=== PATIENT | male | born 1945 | race Caucasian/White ===

== ENCOUNTER 2024-05-25 05:54 | Observation (INO) ==
--- NOTE | 2024-05-19 08:52 | Anesthesiology Consultation ---
Date of Service May 19, 2024 Assessment & Plan (1) Encounter for pre-operative examination: - Check BSG AM DOS - Infectious disease screening: Per assessment on 05/10/24: No known recent infectious disease contacts or current infectious disease symptoms. - Preop testing: No recent BMP received. Will order BMP for DOS. - Cardiology visit (04/14/24): "..Dilated cardiomyopathy, paroxysmal atrial fibrillation, and status post AV edson ablation with a biventricular pacemaker.. He is currently functional class II, euvolemic by examination.. Over 4 METS of a ctivity. He is on Eliquis which can be stopped 3 days prior to the procedure..His blood pressure remains quite soft.. In terms of your surgical procedure, you may proceed without any additional testing. Your perioperative risk is small in this particular procedure and less than 1% and does not require additional testing given your exercise capacity. The device does not need to be dealt with at all, and you may discontinue your blood thinner 3 days prior to the procedure. I would start holding your Demadex now as long as the fluid stays away to try to raise your blood pressure little bit." Chart Review Chart Review: Acceptable Risk for Surgery and Patient NOT seen in Pre Admission Testing History Surgery Operation Date: 05/25/24 07:30 Proposed Procedures p Insertion Intratheal Catheter and Medication Administration Pump System with Regular Subsequent Pump Refills for Duration of the Pump - Renémore Oliver MD, FIPP Height/Weight Height: 5 ft 10 in Weight: 88.904 kg Allergies Allergy/AdvReac Type Severity Reaction Status Date / Time lisinopril AdvReac Unknown Cough Verified 05/10/24 11:47 Medications Home Medications Medication Instructions Recorded Confirmed Last Taken allopurinol 300 mg tablet 300 mg PO QAM 01/07/24 05/10/24 03/08/24 08:30 apixaban 5 mg tablet (Eliquis) 5 mg PO BID 01/07/24 05/10/24 03/05/24 17:00 coenzyme [id number] E 100 mg-100 1 cap PO DAILY 01/07/24 05/10/24 03/08/24 17:00 unit capsule cyanocobalamin (vitamin B-12) 1,000 mcg PO UD 01/07/24 05/10/24 03/08/24 08:30 1,000 mcg capsule ezetimibe 10 mg tablet 10 mg PO HS 01/07/24 05/10/24 03/08/24 17:00 folic acid 1 mg tablet 2 mg PO DAILY 01/07/24 05/10/24 03/08/24 17:00 insulin aspart U-100 100 unit/mL 15 unit subcut TID 01/07/24 05/10/24 03/08/24 17:00 (3 mL) subcutaneous pen (Novolog FlexPen U-100 Insulin aspart) insulin glargine 100 unit/mL (3 27 unit subcut [facility] 01/07/24 05/10/24 03/08/24 08:30 mL) subcutaneous pen (Lantus Solostar U-100 Insulin) levocarnitine 330 mg tablet 330 mg PO BID 01/07/24 05/10/24 03/08/24 08:30 magnesium oxide 500 mg capsule 500 mg PO DAILY 01/07/24 05/10/24 03/08/24 08:30 metoprolol succinate 25 mg 12.5 mg PO [facility] 01/07/24 05/10/24 03/08/24 08:30 tablet,extended release 24 hr rosuvastatin 20 mg tablet 20 mg PO HS 01/07/24 05/10/24 03/08/24 17:00 thiamine HCl (vitamin B1) 50 mg 50 mg PO DAILY 01/07/24 05/10/24 03/08/24 08:30 tablet torsemide 10 mg tablet 5 mg PO HS 01/07/24 05/10/24 03/08/24 08:30 vitamin B comp and C no.3 15 mg-10 1 cap PO DAILY 01/07/24 05/10/24 03/08/24 17:00 mg-50 mg-5 mg-300 mg capsule (B Complex Plus Vitamin C) tamsulosin 0.4 mg capsule 0.4 mg PO DAILY #30 caps 02/03/24 05/10/24 03/08/24 08:30 Past Medical History Medical History Chronic pain syndrome Diabetes Dilated cardiomyopathy Non-ischemic cardiomyopathy Gout History of atrial fibrillation Paroxysmal History of CHF (congestive heart failure) HTN (hypertension) Hypercholesteremia LBBB (left bundle branch block) Lumbar post-laminectomy syndrome Presence of combination internal cardiac defibrillator (ICD) and pacemaker AICD, Implanted 2022, [employer] Follows with Dr. Claus Alexis/[facility] cardio Pulmonary emboli 25+ years ago Thoracic postlaminectomy syndrome Past Surgical History Surgical History History of hip replacement Right History of lumbar surgery x4 History of thoracic spinal fusion x2 Hx of bilateral cataract extraction Hx of cardiac catheterization 20+ years ago- no stents Hx of cervical spine surgery C3-C4 x2 Hx of colonoscopy Hx of hernia repair Hx of tonsillectomy Hx of total knee replacement Right Social History Smoking Status: Former smoker Do You Dip or Chew Tobacco: No Smoking End Date: quit 50+ yrs ago Hx Alcohol Use: No Hx Substance Use: No substance use type: does not use Testing Laboratory Results 05/13/24 WBC 7.7 H/H 14.0/42.1 PLATELETS 188 UA rare bacteria, negative nitrite/leuk est, small mucus (Sofia with surgeon's office made aware > she states she will flag Mundo Dill PAC to review) Electrocardiogram Date: 02/05/24 Ventricular paced rhythm at 70bpm. Chest X-Ray Date: 02/05/24 Limited portable exam. Left hemidiaphragm elevation. Pacemaker in place. The lung zones are clear. Stress Test Date: 03/08/21 Resting and stress perfusion are grossly normal. Negative test for ischemia. EF 41%. Cardiac Catheterization Date: 11/13/17 Left main coronary artery/Lcx/LAD normal. RCA is small, nondominant artery. Other Testing Carotid doppler Date: 04/14/24 No hemodynamically significant stenosis in either ICA. Antegrade flow within both vertebral arteries. ICD check Date: 04/21/24 [employer]. BiV paced.RAP 0%. RVP 99%. LVP 99%. Zero shocks. "Normal device function noted. Device data remained stable. No arrhythmic episodes were noted through device detection."
--- NOTE | 2024-05-24 15:50 | History & Physical Report ---
Date of Service May 24, 2024 Assessment & Plan (1) Lumbar post-laminectomy syndrome: (2) Thoracic postlaminectomy syndrome: (3) Chronic pain syndrome: (4) Chronic anticoagulation: Plan 1. Due to his chronic intractable thoracolumbar pain secondary to lumbar and thoracic postlaminectomy syndromes as well as his history of failure of multiple conservative therapies and the outcome of his successful intrathecal hydromorphone trial it has been recommended that he pursue permanent implantation of intrathecal pump and catheter delivery system to utilize hydromorphone. The potential risks versus benefits of the surgical procedure were discussed at length the patient is and they verbalized understanding. All of their questions were answered. The procedure will be carried out at [facility] on 05/25/2024. Patient will continue with tamsulosin 0.4 mg daily leading up to his surgical procedure and for approximately 1 month status post implantation to ensure his ability to urinate is appropriate with use of intrathecal hydromorphone. 2. Patient will return to the pain clinic for postop care at 1 week and 2 weeks. 3. Patient will likely undergo intrathecal pump refill moving forward in the [facility] History of Present Illness Chief Complaint: Chronic pain syndrome secondary to thoracic and lumbar postlaminectomy syndrome Primary Care Provider: MARIANELA Wells Mr. Andrews is a 78-year-old white male who has complaints of chronic thoracolumbar back pain and right thigh region pain. Patient with multiple comorbid medical conditions with pacemaker/ICD implantation, CHF, hypercholesterolemia, hypertension, gout and chronic anticoagulation therapy. Patient has history of multiple thoracolumbar spinal surgical procedures numbering 7 separate surgeries over the past 20+ years with most recent surgery occurring approximately 4 years ago in [place]. Patient also has history of prior cervical surgery with ACDF and posterior approach x 2. He is uncertain as to the levels previously fused in the thoracic and lumbar region. The patient reports minimal benefit from any of his recent surgical procedures. He reported some moderate relief from his original surgery only. The patient has chronic pain affecting the axial thoracolumbar spine extending from the infrascapular through the lumbosacral junction. He describes the pain as a constant deep aching sensation ranging between a 0-9/10. He has chronic left foot drop from his second surgical procedure. His symptoms exacerbated with prolonged standing, prolonged walking and improved with prolonged sitting with his legs up and lying in bed. He is able to ambulate for short distances with use of a four-wheel walker only. He has significant difficulty with balance patient does not ambulate without the assistance of a walker. Patient has significant limitations in his ADLs secondary to his pain and discomfort. Patient has previously failed multiple treatments including but not limited to physical therapy, acupuncture, multiple injection therapies, radiofrequency ablation procedures, tramadol, gabapentin, Lidoderm and Voltaren gel. The patient is unable to tolerate tramadol due to significant constipation therefore further opiate therapy has been deferred. Patient has history of pulmonary em bolism greater than 20 years ago and has been on chronic anticoagulation therapy over that same timeframe currently on warfarin but recently switched to Eliquis therapy approximately 1 year ago. He follows with cardiology and endocrinology. He did have pacemaker/defibrillator placed within the past 1 year. Patient denies bowel or bladder incontinence or saddle anesthesia. Patient did undergo a successful intrathecal opiate trial with hydromorphone which reportedly provided 80-90% reduction in his chronic thoracolumbar pain lasting for 24 from 36 hours during the trial. Patient was extremely pleased with the results he experienced during the trial and wished to proceed with permanent implantation. The patient did experience some difficulty urinating during the trial and had to be catheterized prior to discharge. He had no residual problems with urination upon discharge and discontinuation of the trial. Patient has no further constitutional complaints. Plan of care discussed with Dr. Karen Dean. Allergies Allergy/AdvReac Type Severity Reaction Status Date / Time lisinopril AdvReac Unknown Cough Verified 05/10/24 11:47 Home Medications Medication Instructions Recorded Confirmed Type allopurinol 300 mg tablet 300 mg PO QAM 01/07/24 05/10/24 History apixaban 5 mg tablet (Eliquis) 5 mg PO BID 01/07/24 05/10/24 History coenzyme [id number] E 100 mg-100 1 cap PO DAILY 01/07/24 05/10/24 History unit capsule cyanocobalamin (vitamin B-12) 1,000 mcg PO UD 01/07/24 05/10/24 History 1,000 mcg capsule ezetimibe 10 mg tablet 10 mg PO HS 01/07/24 05/10/24 History folic acid 1 mg tablet 2 mg PO DAILY 01/07/24 05/10/24 History insulin aspart U-100 100 unit/mL 15 unit subcut TID 01/07/24 05/10/24 History (3 mL) subcutaneous pen (Novolog FlexPen U-100 Insulin aspart) insulin glargine 100 unit/mL (3 27 unit subcut QAM 01/07/24 05/10/24 History mL) subcutaneous pen (Lantus Solostar U-100 Insulin) levocarnitine 330 mg tablet 330 mg PO BID 01/07/24 05/10/24 History magnesium oxide 500 mg capsule 500 mg PO DAILY 01/07/24 05/10/24 History metoprolol succinate 25 mg 12.5 mg PO QAM 01/07/24 05/10/24 History tablet,extended release 24 hr rosuvastatin 20 mg tablet 20 mg PO HS 01/07/24 05/10/24 History thiamine HCl (vitamin B1) 50 mg 50 mg PO DAILY 01/07/24 05/10/24 History tablet torsemide 10 mg tablet 5 mg PO HS 01/07/24 05/10/24 History vitamin B comp and C no.3 15 mg-10 1 cap PO DAILY 01/07/24 05/10/24 History mg-50 mg-5 mg-300 mg capsule (B Complex Plus Vitamin C) tamsulosin 0.4 mg capsule 0.4 mg PO DAILY #30 caps 02/03/24 05/10/24 Rx Past Med/Surg History Problem List (Updated 05/24/24 @ 15:48 by Mundo Dill PA-C) Chronic pain syndrome Thoracic postlaminectomy syndrome Lumbar post-laminectomy syndrome Encounter for pre-operative examination Medical History Chronic pain syndrome Diabetes Dilated cardiomyopathy Non-ischemic cardiomyopathy Gout History of atrial fibrillation Paroxysmal History of CHF (congestive heart failure) HTN (hypertension) Hypercholesteremia LBBB (left bundle branch block) Lumbar post-laminectomy syndrome Presence of combination internal cardiac defibrillator (ICD) and pacemaker AICD, Implanted 2022, [employer] Follows with Dr. Claus Alexis/[facility] cardio Pulmonary emboli 25+ years ago Thoracic postlaminectomy syndrome Surgical History History of hip replacement Right History of lumbar surgery x4 History of thoracic spinal fusion x2 Hx of bilateral cataract extraction Hx of cardiac catheterization 20+ years ago- no stents Hx of cervical spine surgery C3-C4 x2 Hx of colonoscopy Hx of hernia repair Hx of tonsillectomy Hx of total knee replacement Right Social History Smoking Status: Former smoker Tobacco Type: Cigarettes Smoking End Date: quit 50+ yrs ago; Second Hand Exposure: No; Do You Dip or Chew Tobacco: No; Tobacco Cessation Education Requested by Patient: No Hx Alcohol Use: No Hx Substance Use: No Preferred Language: [place] Communication Ability: Effective Visual Impairment: No Limitations Hearing Ability: Normal Crew Caller Required: No Beliefs That Will Affect Care: None marital status: Current Living Situation: Spouse current occupational status: retired current occupation: [employer] Other Information That Helps Us Care for You: No Feels Safe at Home: Yes Safety Concerns: Feels Safe At This Time Assistive Devices: Glasses and Walker Assistive Devices Comment: uses walker and rollator Review of Systems Review of Systems: Constitutional: Negative for fever, chills, sweats Eyes: Negative for eye pain, photophobia, drainage Ear, nose, mouth, throat: Negative for ear pain, nasal congestion, mouth lesions, change in voice Respiratory: Negative for wheezing, sputum production Cardiovascular: Negative for chest pain, palpitations, calf pain Gastrointestinal: Negative for abdominal pain, belching, bloating Genitourinary: Negative for dysuria, urinary incontinence, urinary urgency Musculoskeletal: Negative for deformities Integumentary: Negative for nail changes, skin yellowing, pruritus Neurological: Negative for abnormal speech, seizure type activity Physical Exam Physical Exam: General: Patient sitting quietly in exam room in no acute distress. Patient coming by his . Speech and thought process appropriate. Mood and affect appropriate. Cognition intact. Head: Normocephalic and atraumatic. ENT: No evidence of nasal or oral mucosal lesions. Mucous membranes are moist. Eyes: Pupils equal round reactive to light. Neck: Supple without adenopathy. Limited range of motion in all planes. Well- healed anterior and posterior surgical incisions status post cervical fusion. Patient is tender in the cervical paravertebral musculature bilaterally with spasm. Straightening of cervical lordosis was appreciated. Chest: Nontender to palpation of the costosternal junction. Cardiac: Regular rate and rhythm without murmur. Pacemaker implanted in the left anterior upper chest wall. Lungs: Clear to auscultation no wheeze or rhonchi. Abdomen: Soft and nondistended. No organomegaly. Bowel sounds active. Back/spine: Patient has well-healed midline incision extending from the mid thoracic through the lumbosacral junction. Some generalized tenderness in the thoracic and lumbar paravertebral musculature. Minimal spasm appreciated. Limited range of motion in all planes. Patient is multiple incisional sites which are well-healed right superior gluteal region along the iliac crest with some generalized tenderness to palpation. Lower extremities: SLR negative bilaterally. AFO brace present in left lower extremity. Foot drop appreciated on the left side with strength 0/5 with dorsiflexion and EHL testing. All the strength was 5/5 and equal bilaterally. Sensation was intact without focal deficit. He has no appreciable lower extremity edema. Neurologic: Cranial nerves grossly intact. Ambulatory function slowed and guarded with use of a 4 wheeled walker and unsteady/antalgic.
[2024-05-25] MEDS ORDERED: HYDROmorphone PAIN PUMP--Supplied by Pain Clinic IT SCH (06:00)
[2024-05-25] MEDS: LR 15ML/HR IV SCH (06:47)
[2024-05-25 06:52] LABS: BUN Creatinine Ratio 20.7 (10-20); Calcium 9.6 mg/dl (8.6-10.3); Creatinine Clr Calc Pharmacy 42.4 ml/min; Est GFR (African American) 45.7 ml/min; Est GFR (Non-African American) 39.5 ml/min; Potassium 5.3 mmol/L (3.5-5.1)
[2024-05-25] MEDS ORDERED: fentaNYL citrate PF 100 MCG/2 ML VIAL IV PRN (06:56)
[2024-05-25] MEDS ORDERED: ePHEDrine sulfate 50 MG/ML AMP IV PRN (06:56)
[2024-05-25] MEDS ORDERED: ONDANSETRON INJ 2 MG/ML 2 ML VIAL IV PRN ×2 (06:56→10:06)
[2024-05-25] MEDS ORDERED: ATROPINE SULFATE 0.1 MG/ML 10ML SYR IV PRN (06:56)
[2024-05-25] MEDS ORDERED: LIDOCAINE 2% 2 ML VIAL/AMP(20MG/ML) INFIL ONE (07:02)
[2024-05-25] MEDS ORDERED: DEXAMETHASONE SOD INJ 4 MG/ML VIAL ONE (07:02)
[2024-05-25] MEDS ORDERED: ONDANSETRON INJ 2 MG/ML 2 ML VIAL ONE ×2 (07:02→10:03)
[2024-05-25] MEDS ORDERED: PROPOFOL IV EMULSION 10 MG/ML 20 ML VIAL IV ONE (07:02)
[2024-05-25] MEDS ORDERED: fentaNYL citrate PF 100 MCG/2 ML VIAL ONE (07:02)
--- NOTE | 2024-05-25 07:35 | History & Physical Bridge Note ---
Date of Service May 25, 2024 History & Physical Bridge Note History & Physical Bridge Note Ricardo Andrews is a 78-year-old male with a history of chronic postprocedural pain due to lumbar postlaminectomy syndrome after undergoing extensive lumbar spine surgery in the past. He has been experiencing axial low back pain as well as bilateral lower to radicular pain with minimal activities required greater than such as ambulating more than 5 steps. His pain associated with both lower extremity numbness, dysesthesia, paresthesia and gait disturbance. He has undergone multiple conservative treatment modalities in the past including interventional therapies, nonopioid as well as opiate medications, physical therapy without success improving pain relief so that he can perform minimal ADLs. He is also not a surgical candidate for any additional surgery. He underwent intrathecal hydromorphone trial successfully with significant pain relief and was able to demonstrate increased functional activity during the trial. Patient is scheduled today for implantation of intrathecal medication delivery system. Patient's past medical history, surgical history, medication and allergy list has been reviewed and no changes noted since his last history and physical examination performed. Review of systems is negative for any cardiac, pulmonary, GI, , endocrine or acute neurological complaints other than what is listed in the HPI section. Physical exam: GENERAL: Patient appears his stated age. Speech and cognition is intact. Mood and affect is appropriate. Sensorium is clear. He appears to be in pain when he tries to sit up or roll on his side on the stretcher today. HEAD: Normocephalic; atraumatic. EYES: Pupils are round and equal. Act. Mucous membranes moist and pink. No oral lesions noted. ENT: No external ear discharge or lesions. No rhinorrhea or epistaxis. No mucosal lesions. NECK: Full ROM. Trachea is midline. Carotids without bruit. CARDIAC: Regular rate and rhythm. No murmur or gallops noted. CHEST: Regular chest respiration and excursion. Lungs are clear to a uscultation. ABDOMEN: No organomegaly appreciated. Bowel sounds are hypoactive. EXTREMITIES: 3+ strength of bilateral lower extremities. Symmetrical sensation both lower extremities. BACK: Loss of lumbar lordosis. Significant diminished range of motion of the lumbar spine. Long surgical scar from the thoracic to lumbar spine. NEURO: Clear intact sensorium. SKIN: No lesions, erythema, or rashes noted. ASSESSMENT: Chronic postprocedural pain due to lumbar postlaminectomy syndrome. RECOMMENDATIONS: Patient is offered implantation of intrathecal medication delivery system with infusion of hydromorphone. History reviewed, examination performed, pertinent laboratory and imaging studies reviewed. No contraindications noted to proceeding with the proposed procedure. Potential risks including infection, bleeding, hematoma, nerve injury, persistent back pain, injury to the spinal cord, dural puncture with persistent cerebrospinal fluid leak, post dural puncture headache which may re quire additional interventional procedures to treat, urinary retention were discussed with the patient in detail. Alternative treatments were also discussed. Patient's questions were answered and gives informed consent to proceed with the proposed procedure.
[2024-05-25] MEDS: ceFAZolin 2000MG 2,000 MG/15 ML SYR IV SCH (08:06)
[2024-05-25] MEDS ORDERED: ROCURONIUM BROMIDE 10 MG/ML 5 ML VIAL IV ONE (08:41)
[2024-05-25] MEDS ORDERED: SUGAMMADEX SODIUM 200 MG/2 ML VIAL IV ONE (08:41)
[2024-05-25] MEDS ORDERED: METOPROLOL TARTRATE 1 MG/ML VIAL IV ONE (08:49)
[2024-05-25] MEDS: LIDOCAINE 2%/EPINEPHRINE 1:100,000 20ML INFIL ONE (09:06)
[2024-05-25] MEDS: IOPAMIDOL INJ 61% 15 ML VIAL INJ ONE (09:50)
[2024-05-25] MEDS ORDERED: ACETAMINOPHEN 500 MG TAB PO PRN (10:06)
[2024-05-25] MEDS ORDERED: NALOXONE HCL 0.4 MG/1 ML VIAL/CARP IV PRN (10:06)
[2024-05-25] MEDS ORDERED: MAGNESIUM CITRATE 296 ML/BTL PO PRN (10:06)
[2024-05-25] MEDS ORDERED: diphenhydrAMINE Capsule 25 MG CAP PO PRN (10:06)
[2024-05-25] MEDS ORDERED: HYDROCODONE/ACETAMOPHEN 5/325MG TAB PO PRN (10:06)
[2024-05-25] MEDS ORDERED: EMPAGLIFLOZIN 25 MG TAB PO SCH (10:15)
--- NOTE | 2024-05-25 13:07 | Anesthesiology Progress Note ---
Date of Service May 25, 2024 Anesthesia Post Procedure Vital Signs Vital Signs: Temp Pulse Resp BP Pulse Ox O2 Del Method O2 Flow Rate 05/25/24 12:45 70 19 137/60 97 Room Air 05/25/24 12:15 70 18 108/55 L 93 Room Air 05/25/24 12:00 70 15 110/57 L 92 Room Air 05/25/24 11:45 70 17 118/55 L 96 Room Air 05/25/24 11:30 70 14 112/61 95 Room Air 05/25/24 11:20 70 15 117/56 L 96 Room Air 05/25/24 11:10 70 16 121/54 L 95 Room Air 05/25/24 11:00 36.3 C L 70 15 97/60 L 95 Room Air 05/25/24 10:50 70 14 105/58 L 95 Room Air 05/25/24 10:40 70 16 116/58 L 96 Room Air 05/25/24 10:30 70 16 123/57 L 96 Room Air 05/25/24 10:21 36.2 C L 70 21 131/53 L 99 Nasal Cannula 4 05/25/24 06:26 36.4 C L 70 20 112/58 L 99 Room Air Pain Intensity Back: Pain Intensity: 2 Transfer of Care Handoff Completed per policy Notes Mental Status: alert / awake / arousable and participated in evaluation Patient Amnestic to Procedure: Yes Nausea / Vomiting: adequately controlled Pain: adequately controlled Airway Patency, RR, SpO2: stable & adequate BP & HR: stable & adequate Hydration State: stable & adequate Anesthetic Complications: no major complications apparent and Pt Satisfied with anesthetic care
--- NOTE | 2024-05-25 13:21 | XRay Report ---
XR thoracolumbar spine 2V CLINICAL HISTORY: s/p intrathecal pump; check catheter tip placement TECHNIQUE: 2 views of the thoracolumbar spine were obtained. Comparison: Comparison is made to thoracic spine radiographs 01/07/2024 and fluoroscopy 05/25/2024 FINDINGS: A pain pump is seen in the right hemipelvis. The catheter is partially visualized however the tip is not well seen due to the posterior fixation hardware and surrounding ossification. Degenerative lake es are seen in the thoracic spine. Posterior fixation hardware is seen in the thoracolumbar spine. IV C filter is seen. Right hip arthroplasty is seen. Alignment appears unremarkable. No soft tissue abno rmality is seen. IMPRESSION: The catheter is seen to enter the spinal canal, however the tip is not well seen. ACT 112: Negative or not required by law. Electronically signed by: Bo Saenz M.D. 05/25/2024 1:19 PM
[2024-05-25] MEDS: THIAMINE HCL 50 MG TABLET PO SCH (13:56)
[2024-05-25] MEDS: VITAMIN B COMPLEX TAB PO SCH (13:56)
[2024-05-25] MEDS: MAGNESIUM OXIDE 400 MG TAB PO SCH (13:56)
[2024-05-25] MEDS: allopurinoL 300 MG TAB PO SCH (13:56)
[2024-05-25] MEDS: FOLIC ACID 1 MG TAB PO SCH (13:56)
[2024-05-25] MEDS: TAMSULOSIN HCL 0.4 MG CAP PO SCH (13:56)
[2024-05-25] MEDS: lisinopril 2.5 MG TAB PO SCH (13:56)
[2024-05-25] MEDS: METOPROLOL SUCC 25MG EXT REL TAB PO SCH (13:57)
[2024-05-25] MEDS: LANTUS PER UNIT CHARGE SQ SCH (14:13)
[2024-05-25] MEDS: INSULIN ASPART PER UNIT CHARGE SQ SCH ×2 (14:40→23:44)
[2024-05-25] MEDS: cefTRIAXone SODIUM 2,000 MG in DEXTROSE 5% 50 ML IV ONE (18:21)
[2024-05-25] MEDS ORDERED: PHARMACY GLYCEMIC MGMT CONSULT PRN (18:45)
[2024-05-25] MEDS: EZETIMIBE 10 MG TAB PO SCH (21:04)
[2024-05-25] MEDS: ROSUVASTATIN CALCIUM 20 MG TAB PO SCH (21:06)
[2024-05-25] MEDS: TORSEMIDE 20 MG TAB PO SCH (21:06)
[2024-05-25] MEDS: DOCUSATE SODIUM 100 MG CAP PO SCH (21:12)
[2024-05-26 03:21] VITALS: O2SAT 95
[2024-05-26 07:53] VITALS: RESP 18; TEMP 97.7
--- NOTE | 2024-05-26 07:59 | Pharmacy Report ---
Pharmacy Glycemic Short Note 2 - Date of Service May 26, 2024 - Glycemic Short BSG Results (Last 24 hours): 05/25/24 05/25/24 05/25/24 10:22 13:38 17:37 POC Glucose 159 H 299 H 306 H* 05/25/24 05/25/24 05/26/24 20:28 23:37 03:44 POC Glucose 294 H 216 H 133 H 05/26/24 07:49 POC Glucose 99 OUTPATIENT ANTIDIABETIC REGIMEN: * Lantus 27 units SC Daily * NovoLog 15 units SC TID * Empagliflozin 12.5mg PO Daily * A1c - not ordered, discharge planning ordered for today. ASSESSMENT: * 78 YO M, POD1 for implantation of intrathecal medication delivery system. Type 2 diabetic, received 4mg dexamethasone IV yesterday, resulting in hyperglycemia. Patient started on home dose of Lantus at 1400 yesterday - continue today. * NovoLog parameters tightened last night and given overnight to correct for hyperglycemia, blood sugar improved to goal, 133mg/dl at 0400 today. * Continue these NovoLog parameters at this time, and loosen as dexamethasone wears off/ blood glucose trends down. PLAN FOR INPATIENT GLYCEMIC CONTROL: * Hold outpatient oral diabetes medications * Basal insulin * Lantus 27 units SQ Daily * Bolus insulin * NovoLog per scale ACHS or Q6hrs while NPO * Goal Range: Low 110 mg/dL - High 140 mg/dL * Correction Factor: 20 mg/dL/unit * Nutritional / Prandial insulin per carb ratio of 1 unit per 6 grams CHO consumed
[2024-05-26] MEDS: CYANOCOBALAMIN (B-12) 500 MCG TABLET PO SCH (08:07)
[2024-05-26] MEDS: ASCORBIC ACID 500 MG TAB PO SCH (08:08)
[2024-05-26 09:23] VITALS: BP 96/50; PULSE 70
--- NOTE | 2024-06-03 12:28 | Discharge Summary ---
Date of Service June 03, 2024 Admission HPI Per Admitting Provider Mr. Andrews is a 78-year-old white male who has complaints of chronic thoracolumbar back pain and right thigh region pain. Patient with multiple comorbid medical conditions with pacemaker/ICD implantation, CHF, hyper cholesterolemia, hypertension, gout and chronic anticoagulation therapy. Patient has history of multiple thoracolumbar spinal surgical procedures numbering 7 separate surgeries over the past 20+ years with most recent surgery occurring approximately 4 years ago in [place]. Patient also has history of prior cervical surgery with ACDF and posterior approach x 2. He is uncertain as to the levels previously fused in the thoracic and lumbar region. The patient reports minimal benefit from any of his recent surgical procedures. He reported some moderate relief from his original surgery only. The patient has chronic pain affecting the axial thoracolumbar spine extending from the infrascapular through the lumbosacral junction. He describes the pain as a constant deep aching sensation ranging between a 0-9/10. He has chronic left foot drop from his second surgical procedure. His symptoms exacerbated with prolonged standing, prolonged walking and improved with prolonged sitting with his legs up and lying in bed. He is able to ambulate for short distances with use of a four-wheel walker only. He has significant difficulty with balance patient does not ambulate without the assistance of a walker. Patient has significant limitations in his ADLs secondary to his pain and discomfort. Patient has previously failed multiple treatments including but not limited to physical therapy, acupuncture, multiple injection therapies, radiofrequency ablation procedures, tramadol, gabapentin, Lidoderm and Voltaren gel. The patient is unable to tolerate tramadol due to significant constipation therefore further opiate therapy has been deferred. Patient has history of pulmonary embolism greater than 20 years ago and has been on chronic anticoagulation therapy over that same timeframe currently on warfarin but recently switched to Eliquis therapy approximately 1 year ago. He follows with cardiology and endocrinology. He did have pacemaker/defibrillator placed within the past 1 year. Patient denies bowel or bladder incontinence or saddle anesthesia. Patient did undergo a successful intrathecal opiate trial with hydromorphone which reportedly provided 80-90% reduction in his chronic thoracolumbar pain lasting for 24 from 36 hours during the trial. Patient was extremely pleased with the results he experienced during the trial and wished to proceed with permanent implantation. The patient did experience some difficulty urinating during the trial and had to be catheterized prior to discharge. He had no residual problems with urination upon discharge and discontinuation of the trial. Patient has no further constitutional complaints. Plan of care discussed with Dr. Karen Dean. Admission Exam (Per Admitting) Constitutional General: Patient sitting quietly in exam room in no acute distress. Patient coming by his . Speech and thought process appropriate. Mood and affect appropriate. Cognition intact. Head: Normocephalic and atraumatic. ENT: No evidence of nasal or oral mucosal lesions. Mucous membranes are moist. Eyes: Pupils equal round reactive to light. Neck: Supple without adenopathy. Limited range of motion in all planes. Well- healed anterior and posterior surgical incisions status post cervical fusion. Patient is tender in the cervical paravertebral musculature bilaterally with spasm. Straightening of cervical lordosis was appreciated. Chest: Nontender to palpation of the costosternal junction. Cardiac: Regular rate and rhythm without murmur. Pacemaker implanted in the left anterior upper chest wall. Lungs: Clear to auscultation no wheeze or rhonchi. Abdomen: Soft and nondistended. No organomegaly. Bowel sounds active. Back/spine: Patient has well-healed midline incision extending from the mid thoracic through the lumbosacral junction. Some generalized tenderness in the thoracic and lumbar paravertebral musculature. Minimal spasm appreciated. Limited range of motion in all planes. Patient is multiple incisional sites which are well-healed right superior gluteal region along the iliac crest with some generalized tenderness to palpation. Lower extremities: SLR negative bilaterally. AFO brace present in left lower extremity. Foot drop appreciated on the left side with strength 0/5 with dorsiflexion and EHL testing. All the strength was 5/5 and equal bilaterally. Sensation was intact without focal deficit. He has no appreciable lower extremity edema. Neurologic: Cranial nerves grossly intact. Ambulatory function slowed and guarded with use of a 4 wheeled walker and unsteady/antalgic. Specialty Data Specialty Data Thoracolumbar Spine 05/25/24 11:33 XR thoracolumbar spine 2V CLINICAL HISTORY: s/p intrathecal pump; check catheter tip placement TECHNIQUE: 2 views of the thoracolumbar spine were obtained. Comparison: Comparison is made to thoracic spine radiographs 01/07/2024 and fluoroscopy 05/25/2024 FINDINGS: A pain pump is seen in the right hemipelvis. The catheter is partially visualized however the tip is not well seen due to the posterior fixation hardware and surrounding ossification. Degenerative changes are seen in the thoracic spine. Posterior fixation hardware is seen in the thoracolumbar spine. IVC filter is seen. Right hip arthroplasty is seen. Alignment appears unremarkable. No soft tissue abnormality is seen. IMPRESSION: The catheter is seen to enter the spinal canal, however the tip is not well seen. ACT 112: Negative or not required by law. Electronically signed by: Bo Saenz M.D. 05/25/2024 1:19 PM Discharge Data Procedures Performed Operation Date: 05/25/24 07:30 Actual Procedures p Insertion Intratheal Catheter and Medication Administration Pump System with Regular Subsequent Pump Refills for Duration of the Pump(Not Applicable) - René Oliver MD, [facility] Hospital Course (1) Lumbar post-laminectomy syndrome: (2) Thoracic postlaminectomy syndrome: (3) Chronic pain syndrome: (4) Spinal cord stimulator status: Plan 1. Due to his chronic intractable thoracolumbar pain secondary to lumbar and thoracic postlaminectomy syndromes as well as his history of failure of multiple conservative therapies and the outcome of his successful intrathecal hydromo rphone trial it has been recommended that he pursue permanent implantation of intrathecal pump and catheter delivery system to utilize hydromorphone. The potential risks versus benefits of the surgical procedure were discussed at length the patient is and they verbalized understanding. Patient will continue with tamsulosin 0.4 mg daily leading up to his surgical procedure and for approximately 1 month status post implantation to ensure his ability to urinate is appropriate with use of intrathecal hydromorphone. On May 25, 2024 Ricardo arrived at [facility] operating room and underwent placement of intrathecal pain pump and catheter without complications. Patient had general anesthesia for the procedure. Postoperatively, patient was transferred to the [facility] telemetry floor in stable condition. Patient's hospital course was uneventful. On postoperative day #1, patient's vital signs were stable and pain was well-controlled. Patient was then discharged home in stable condition, with postoperative follow-up and continued care for pump refill near his home in [place], [place] with MARIANELA Wells.
--- NOTE | 2024-06-09 11:15 | Operative Report ---
PG Post Operative Report Pre & Post Diagnosis Operation Date: 05/25/24 07:30 Pre-Op Diagnosis: Chronic Post Procedural Pain Thoracic Post-Laminectomy Syndrome Post-Op Diagnosis: Chronic Post Procedural Pain Thoracic Post-Laminectomy Syndrome I identified the patient and participated in the time-out.: Yes Procedure Operation Date: 05/25/24 07:30 Actual Procedures Insertion Intratheal Catheter and Medication Administration Pump System with Regular Subsequent Pump Refills for Duration of the Pump(Not Applicable) - René Oliver MD, PRO Surgeon René Oliver MD, PRO Clinical Scientist Betty Garcia, PAC Estimated Blood Loss 10 Findings Consistent with Post-Op Diagnosis Specimens None Drains None Anesthesia Type General Complications none Disposition Accompanied Patient To Recovery: No Disposition: Recovery Room Description of Procedure INTRATHECAL DRUG DELIVERY SYSTEM IMPLANTATION OPERATIVE REPORT PREOPERATIVE DIAGNOSIS: Intractable pain secondary to lumbar post laminectomy syndrome. POSTOPERATIVE DIAGNOSIS: Same. PROCEDURE: 1. Insertion of intrathecal catheter under fluoroscopic guidance. 2. Implantation of intrathecal pump. 3. Intrathecal pump refill. 4. Postoperative reprogramming of intrathecal drug delivery system pump. INDICATIONS: 1. Chronic postprocedural pain. 2. Lumbar postlaminectomy syndrome. COMPLICATIONS: None ANESTHESIA: General. DESCRIPTION OF PROCEDURE: The patient had a successful intrathecal trial and agreed to intrathecal pump insertion. Prior to starting, the Patients diagnosis and the procedure were reviewed with the patient in detail. Possible risks and complications including infection, bleeding, damage to surrounding structures and increased pain were discussed. Alternative therapies were also reviewed. Patients questions were answered and they agreed to proceed. Informed consent was obtained. Allergies and medication list was reviewed. Biplanar fluoroscopy was used to assist in placement of the needle as well as to evaluate the final needle and catheter positions. The patient was brought to the operating room and general anesthesia was induced by members of the department. Patient was then placed in left lateral decubitus position. Immediately prior to starting the procedure, a ``time out was conducted with the staff where the patient was identified, proposed procedure w as verified, consent was reviewed and the proper site for the planned procedure was identified. Preoperative antibiotics for prophylaxis were given through the IV. On examination, no signs of skin breakdown or infection were noted at the injection site. The site was cleansed with DuraPrep followed by Betadine. Sterile drapes were applied in the usual fashion. Using biplanar fluoroscopy an 18-gauge spinal needle was used to gain access to the intrathecal sac at L3/L4 interspace. Clear free cerebral spinal fluid flow was noted without any blood. [employer] intrathecal catheter was passed through the needle under fluoroscopic guidance and the tip was positioned at inferior edge of T8 vertebral body level. Stylet was removed and free CSF flow was aspirated. Using a scalpel, 1-1/2 inch midline incision was made surrounding the intrathecal needle. Hemostasis was achieved using electro cautery. The epidural catheter was secured to the dorso-lumbar fascia with 2 purse string 0-0 silk ties. Then the spinal needle was removed and a [employer] butterfly anchor to secure the catheter to the underlying supraspinous ligament was utilized to secure the catheter. Free CSF flow from the intrathecal catheter after anchoring of the catheter to the fascia. Then in the right lower quadrant a pocket for the intrathecal pump was made using scalpel to skin incision and electro cautery for the deeper layers. A passer was used to transfer the intrathecal pump catheter underneath the skin and subcutaneous tissues through to the pocket incision. After transfer of the end of the catheter to the pocket incision aspiration of the intrathecal catheter revealed free CSF flow. Both pocket and midline axial thoracic incisions were irrigated with 3 bulb syringes full of sterile normal saline with bacitracin. Hemostasis was achieved. The intrathecal pump was filled was rinsed and filled with hydromorphone 1 mg/ml per protocol. The intrathecal catheter was trimmed to remove 6 cm. The suture-less connector was connected to the end the intrathecal pump and aspiration from of the end of the catheter was free-flowing. It was then connected to the intrathecal pump using the connecting device. The intrathecal pump was anchored in the pocket with 4-0 Prolene sutures. No complications were noted after the intrathecal pump was placed inside the pocket. Both wounds were irrigated with bacitracin-containing normal saline. Both wounds were closed in similar fashion using continuous 0 antibiotic coated STRATAFIX suture for deeper layer and running antibiotic coated 3-0 strata fix suture for subcuticular layer. Prineo to the skin. Aquacel dressing was applied to both sites. Abdominal binder was placed. No complications were noted throughout the procedure. The patient tolerated the procedure and general anesthesia without obvious complications.. Patient was allowed to emerge from anesthesia at the end of the procedure and transferred back to the stretcher. Patient was transported to the recovery room in stable condition. The patient will follow up with our clinic within 7 days for a wound check and then plan to have the santos removed at day 14. Pump size inserted: 20 ml Level of catheter: Lower edge of T8 vertebral body Medication placed in pump: Hydromorphone 1 mg/ml to run at 0.1 mg/day I attest to the content of the Intraoperative Record and any orders documented therein. Any exceptions are noted below.
== END 2024-05-26 10:02 | disposition home or self-care (01) ==
LOC: PACUINP 05:54 → ASU 05:54 → 2N 13:29